=== PATIENT | female | born 1980 | race Caucasian/White ===

== ENCOUNTER 2018-11-23 12:22 | Inpatient (IN) | payer MEDICARE ==
--- NOTE | 2018-11-23 13:41 | C.PDOC ---
History Of Present Illness 38 year old female presents to ED with complaint of lower back pain at rest for the past 2 days. Patient also complains of experiencing urinary incontinence. Patient has a PMHx of bulging discs in the lower lumbar region, surgery to her lumbar region one month ago, slipped disc, left-sided sciatica, anemia, and weakness to the left lower extremity. Patient denies any urinary retention, bowel retention, bowel incontinence, saddle anesthesia, weakness in the bilateral lower extremities, fever, chills, nausea, vomiting, dysuria, abdominal pain, and fall Chief Complaint (Nursing): Back Pain History Per: Patient History/Exam Limitations: no limitations Onset/Duration Of Symptoms: Days (2) Current Symptoms Are (Timing): Still Present Quality Of Discomfort: "Pain" Previous Symptoms: Back Pain, Prior Surgery (lumbar surgery) Associated Symptoms: Incontinence. denies: New Weakness, New Numbness Exacerbating Factor(s): Nothing Past Medical History Reviewed: Historical Data, Nursing Documentation, Vital Signs Vital Signs: Last Vital Signs Temp 98.5 F 11/23/18 12:50 Pulse 95 H 11/23/18 12:50 Resp 18 11/23/18 12:50 BP 94/64 L 11/23/18 12:50 Pulse Ox 100 11/23/18 12:50 - Medical History PMH: Anemia, Back Problems, Seizures Denies: Chronic Kidney Disease Surgical History: Back Surgery (Herniated disc sx, laminectomy L4-5, "discectomy"), Cholecystectomy Family History: States: Unknown Family Hx - Social History Hx Tobacco Use: No Hx Alcohol Use: Yes (Rarely) Hx Substance Use: No - Immunization History Hx Tetanus Toxoid Vaccination: No Hx Influenza Vaccination: Yes (2015) Hx Pneumococcal Vaccination: No Review Of Systems Constitutional: Negative for: Fever, Chills, Weakness Gastrointestinal: Negative for: Nausea, Vomiting, Abdominal Pain Genitourinary: Positive for: Incontinence (urinary ). Negative for: Dysuria Musculoskeletal: Positive for: Back Pain Neurological: Negative for: Weakness, Numbness, Dizziness Physical Exam - Physical Exam Appears: Non-toxic, Other (uncomfortable) Skin: Normal Color, Warm, Dry Head: Atraumatic, Normacephalic Eye(s): bilateral: Normal Inspection, PERRL, EOMI Oral Mucosa: Moist Neck: Normal ROM, Supple Chest: Symmetrical, No Deformity Cardiovascular: Rhythm Regular, No Murmur Respiratory: No Accessory Muscle Use, No Rales, No Rhonchi, No Wheezing Gastrointestinal/Abdominal: Soft, No Tenderness Rectal: Rectal Tone (normal) Back: No CVA Tenderness, Vertebral Tenderness (lumbar region), Paraspinal Tenderness (lumbar region) Extremity: Other (DTR 3+ bilateral lower extremites, normal plantar flexon) Extremity: Bilateral: Atraumatic, Normal Color And Temperature, Normal ROM Pulses: Left Dorsalis Pedis: Normal, Right Dorsalis Pedis: Normal Neurological/Psych: Oriented x3, Normal Speech, Normal Cognition, Normal Motor (5/5), Normal Sensation ED Course And Treatment - Laboratory Results Result Diagrams: 11/23/18 14:08 11/23/18 14:08 O2 Sat by Pulse Oximetry: 100 (in RA) - Other Rad L-spine MRI X-Ray: Interpreted by Me, Viewed By Me Interpretation: Strickland MD. Patient NameTORDEL CLIFTON / [id number] Ward MD. Study [id number] 15:41:48Transcriber. Sex / AgeF / [id number] Ward MD. [facility] BellevilleApproval [id number] 17:00:45. My Comment. Study Comments. Report. This report is currently processing and HAS NOT BEEN OFFICIALLY SIGNED BY THE PHYSICIAN - ESTIMATED TIME OF APPROVAL IS 11/23/2018 17:05. Date of service: 11/23/2018. PROCEDURE: MR LUMBAR SPINE WITH AND WITHOUT CONTRAST. HISTORY: low back/urinary incontinence. COMPARISON: None available. TECHNIQUE: Multiecho multiplanar sequences were performed through the lumbar spine with and without the use of intravenous contrast. 9 mL Omniscan was injected intravenously. FINDINGS: There is normal alignment of the lumbar vertebral bodies. There is normal lumbar lordosis. There is no acute fracture or spondylolysis. Bone marrow signal is within normal limits. The conus medullaris terminates at a normal level and the nerve roots of cauda equina are normal. The paraspinous soft tissues are normal. Imaged portion of the retroperitoneum is within limits. T12-L1: No disc herniation, spinal canal stenosis or neural foraminal narrowing. L1-2: No disc herniation, spinal canal stenosis or neural foraminal narrowing. L2-3: No disc herniation, spinal canal stenosis or neural foraminal narrowing. L3-4: No disc herniation, spinal canal stenosis or neural foraminal narrowing. L4-5: Central annular tear and broad-based central and left posterolateral disc extrusion with approximately 10 mm cranial migration of extruded fragment which indents the thecal sac with mass effect on the traversing left S1 and left-sided traversing nerve roots and results in mild spinal canal stenosis. Mild bilateral facet arthropathy contribute to mild right and moderate left neural foraminal narrowing. L5-S1: Broad-based central disc protrusion indents the ventral thecal sac with mild spinal canal stenosis. No neural foraminal narrowing. OTHER FINDINGS: On post-contrast images there is no abnormal leptomeningeal or intramedullary enhancement. IMPRESSION: 1. At L4-5, central annular tear and broad-based central and left posterolateral disc extrusion with approximately 10 mm cranial migration of extruded disc fragment, mass effect on the traversing left S1 and left-sided traversing nerve roots and mild spinal canal stenosis. Mild right and moderate left neural foraminal narrowing. 2. At L5-S1 broad-based central disc protrusion and mild spinal canal stenosis. No neural foraminal narrowing. Medical Decision Making Medical Decision Making: Impression: 38 year old female with lumbar back pain for 2 days. Plan: Labs ordered with urine culture and UA Patient given Morphine IVP and Zofran IVP Lumbar Spine MRI ordered for patient Re-eval: Patient appears comfortable. Disposition Counseled Patient/Family Regarding: Studies Performed, Diagnosis - Disposition Disposition: HOSPITALIZED Disposition Time: 17:41 Condition: STABLE - Clinical Impression Clinical Impression: Herniation of left side of L4-L5 intervertebral disc, Anemia, UTI (urinary tract infection) - Scribe Statement The provider has reviewed the documentation as recorded by the Scribe (Isidra Resendez) All medical record entries made by the Scribe were at my direction and personally dictated by me. I have reviewed the chart and agree that the record accurately reflects my personal performance of the history, physical exam, medical decision making, and the department course for this patient. I have also personally directed, reviewed, and agree with the discharge instructions and disposition.
[2018-11-23 14:20] LABS: BASO # 0.1 K/uL (0.0-0.2); BASO % 1.2 % (0.0-2.0); EOS # 0.1 K/uL (0.0-0.7); EOS % 2.2 % (0.0-4.0); HEMOGLOBIN 8.6 g/dL (11.0-16.0); LYMPH # 1.6 K/uL (1.0-4.3); LYMPH % 30.8 % (20.0-40.0); MEAN CELL VOLUME 71.6 fL (81.0-99.0); MEAN CORPUSCULAR HEMOGLOBIN 21.9 pg (27.0-31.0); MEAN CORPUSCULAR HGB CONC 30.6 g/dL (33.0-37.0); MEAN PLATELET VOLUME 7.8 fL (7.2-11.7); MONO # 0.5 K/uL (0.0-0.8); MONO % 9.1 % (0.0-10.0); NEUT % 56.7 % (50.0-75.0); RBC 3.93 Mil/uL (3.80-5.20); RED CELL DISTRIBUTION WIDTH 17.5 % (11.5-14.5); WHITE BLOOD COUNT 5.3 K/uL (4.8-10.8)
[2018-11-23 14:32] LABS: INR 1.1
[2018-11-23 14:33] LABS: ALB/GLOB RATIO 1.4 (1.0-2.1); ALBUMIN 4.1 g/dL (3.5-5.0); ALT/SGPT 9 U/L (9-52); AST/SGOT 21 U/L (14-36); BLOOD UREA NITROGEN 13 mg/dL (7-17); CALCIUM 8.2 mg/dl (8.6-10.4); GFR NON-AFRICAN AMERICAN > 60
[2018-11-23 14:58] LABS: SQUAMOUS EPITHIAL 15 /hpf (0-5); URINE BACTERIA MANY (<OCC); URINE BILIRUBIN NEGATIVE (NEGATIVE); URINE BLOOD NEGATIVE (NEGATIVE); URINE CLARITY Hazy (Clear); URINE COLOR Amber (YELLOW); URINE GLUCOSE (UA) NORMAL (Normal); URINE LEUKOCYTE ESTERASE 2+ Leu/uL (Negative); URINE PROTEIN NEGATIVE (NEGATIVE)
[2018-11-23] MEDS ORDERED: Sodium Chloride 0.9% 1,000 ML IV ONE ×2 (15:01→17:37)
[2018-11-23] MEDS ORDERED: Sodium Chloride 0.9% 1,000 ML ONE ×3 (15:22→18:24)
[2018-11-23] MEDS ORDERED: Gadodiamide 287 MG/ML VIAL (15ML) IV ONE (16:12)
--- NOTE | 2018-11-23 17:04 | MRI ---
Date of service: 11/23/2018 PROCEDURE: MR LUMBAR SPINE WITH AND WITHOUT CONTRAST HISTORY: low back/urinary incontinence COMPARISON: None available. TECHNIQUE: Multiecho multiplanar sequences were performed through the lumbar spine with and without the use of intravenous contrast. 9 mL Omniscan was injected intravenously. FINDINGS: There is normal alignment of the lumbar vertebral bodies. There is normal lumbar lordosis. There is no acute fracture or spondylolysis. Bone marrow signal is within normal limits. The conus medullaris terminates at a normal level and the nerve roots of cauda equina are normal. The paraspinous soft tissues are normal. Imaged portion of the retroperitoneum is within limits. T12-L1: No disc herniation, spinal canal stenosis or neural foraminal narrowing. L1-2: No disc herniation, spinal canal stenosis or neural foraminal narrowing. L2-3: No disc herniation, spinal canal stenosis or neural foraminal narrowing. L3-4: No disc herniation, spinal canal stenosis or neural foraminal narrowing. L4-5: Central annular tear and broad-based central and left posterolateral disc extrusion with approximately 10 mm cranial migration of extruded fragment which indents the thecal sac with mass effect on the traversing left S1 and left-sided traversing nerve roots and results in mild spinal canal stenosis. Mild bilateral facet arthropathy contribute to mild right and moderate left neural foraminal narrowing. L5-S1: Broad-based central disc protrusion indents the ventral thecal sac with mild spinal canal stenosis. No neural foraminal narrowing. OTHER FINDINGS: On post-contrast images there is no abnormal leptomeningeal or intramedullary enhancement. IMPRESSION: 1. At L4-5, central annular tear and broad-based central and left posterolateral disc extrusion with approximately 10 mm cranial migration of extruded disc fragment, mass effect on the traversing left S1 and left-sided traversing nerve roots and mild spinal canal stenosis. Mild right and moderate left neural foraminal narrowing. 2. At L5-S1 broad-based central disc protrusion and mild spinal canal stenosis. No neural foraminal narrowing.
[2018-11-23] MEDS ORDERED: Tmp-Smz 800 mg-160 mg DS Tab PO STA (17:17)
[2018-11-23] MEDS ORDERED: Morphine 4 MG/ML VIAL IV ONE (17:36)
[2018-11-23] MEDS ORDERED: Tmp-Smz 800 mg-160 mg DS Tab ONE (17:38)
[2018-11-23] MEDS ORDERED: Multivitamin (MVI) 10 ML, Thiamine 100 MG, Folic Acid 1 MG in Sodium Chloride 0.9% 1,00... IV ONE (17:49)
[2018-11-23] MEDS ORDERED: Sodium Chloride 0.9% 500 ML IV ONE (18:21)
[2018-11-23] MEDS ORDERED: Morphine 4 MG/ML VIAL IVP STA (18:32)
--- NOTE | 2018-11-23 18:40 | CP.PCM.HP ---
<AngeFreda Sam - Last Filed: 11/23/18 19:22> History of Present Illness - History of Present Illness History of Present Illness: CC: low back pain HPI: Patient is a 38 year old female with PMHx of anemia, gastric bypass surgery (2013), L4-L5 laminectomy due to herniated discs (2014) who presents today for 1 month of worsening low back pain. Patient had no trauma or falls. 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 Patient says the pain today was a knife like pain in her low back which she rated 15/10 so she came to the hospital. Additionally patient has had 3-4 episodes of a small amount of urinary incontinence in the past 2 days. Patient denies dysuria, urinary frequency, or hematuria. Patient is able to walk, but says the back pain radiates down the left. Patient denies any numbness or tingling in the lower extremities. Patient denies any saddle anesthesia or fecal incontinence. Patient had a normal bowel movement yesterday. Patient does not take any medication for the pain. Patient said she took Tylenol PM a few weeks ago, but did not like the way it made her feel. Patient has no headache, chest pain, shortness of breath, abdominal pain, nausea, vomiting, constipation, or diarrhea. All: NKDA PMHx: anemia 2/2 gastric bypass surgery, herniated discs Psurg: Gastric bypass 2013 at [place] (has not had any follow up, takes no supplements/vitamins), L4/L5 Laminectomy 2014 2/2 herniated discs at [facility] with Dr. Lal, Cholecystectomy 2012, Tubal ligation 2009, 4 csections: 1993, 2000, 2001, 2007 Famhx: denies Meds: denies Social: denies tobacco, drugs, admits to drinking about 1 drink per year for New Year's Mindy Present on Admission - Present on Admission Any Indicators Present on Admission: No History of DVT/PE: No History of Uncontrolled Diabetes: No Urinary Catheter: No Decubitus Ulcer Present: No Review of Systems - Constitutional Constitutional: absent: Chills, Fever - EENT Ears: absent: Dizziness - Cardiovascular Cardiovascular: absent: Chest Pain, Dyspnea - Respiratory Respiratory: absent: Cough, Dyspnea - Gastrointestinal Gastrointestinal: absent: Abdominal Pain, Constipation, Diarrhea, Nausea, Vomiti ng - Genitourinary Genitourinary: Urinary Incontinence. absent: Dysuria, Hematuria, Urinary Frequency, Urinary Hesitance - Musculoskeletal Musculoskeletal: absent: Numbness, Tingling Additional comments: left leg decreased ROM 2/2 pain lumbar pain radiating into left leg - Neurological Neurological: absent: Tingling, Weakness Past Patient History - Past Social History Smoking Status: Never Smoked - CARDIAC Hx Cardiac Disorders: No - PULMONARY Hx Respiratory Disorders: No - NEUROLOGICAL Hx Seizures: Yes - HEENT Hx HEENT Problems: No - RENAL Hx Chronic Kidney Disease: No - ENDOCRINE/METABOLIC Hx Endocrine Disorders: No - HEMATOLOGICAL/ONCOLOGICAL Hx Anemia: Yes - MUSCULOSKELETAL/RHEUMATOLOGICAL Hx Musculoskeletal Disorders: Yes Hx Herniated Disk: Yes - PSYCHIATRIC Hx Substance Use: No - SURGICAL HISTORY Hx Cholecystectomy: Yes - ANESTHESIA Hx Anesthesia: Yes Hx Anesthesia Reactions: No Meds Allergies/Adverse Reactions: Allergies Allergy/AdvReac Type Severity Reaction Status Date / Time No Known Allergies Allergy Verified 11/23/18 12:54 Physical Exam - Constitutional Appears: Non-toxic, In Acute Distress - Head Exam Head Exam: ATRAUMATIC, NORMAL INSPECTION, NORMOCEPHALIC - Eye Exam Eye Exam: EOMI, Normal appearance - ENT Exam ENT Exam: Mucous Membranes Moist - Respiratory Exam Respiratory Exam: Clear to Auscultation Bilateral, NORMAL BREATHING PATTERN - Cardiovascular Exam Cardiovascular Exam: REGULAR RHYTHM, RRR, +S1, +S2 - GI/Abdominal Exam GI & Abdominal Exam: Normal Bowel Sounds, Soft. absent: Tenderness - Extremities Exam Extremities exam: Positive for: normal inspection. Negative for: pedal edema, tenderness Additional comments: decreased L leg ROM 2/2 pain - Neurological Exam Neurological exam: Alert, CN II-XII Intact, Oriented x3 Additional comments: r leg reflexes 3+, l leg reflexes 2+ normal sensation b/l LE no saddle anesthesia - Psychiatric Exam Psychiatric exam: Normal Affect, Normal Mood - Skin Skin Exam: Intact, Normal Color, Warm Results - Vital Signs Recent Vital Signs: Last Vital Signs Temp 98.4 F 11/23/18 16:56 Pulse 60 11/23/18 16:56 Resp 18 11/23/18 16:56 BP 93/63 L 11/23/18 16:56 Pulse Ox 100 11/23/18 17:47 - Labs Result Diagrams: 11/23/18 14:08 11/23/18 14:08 Labs: Laboratory Results - last 24 hr 11/23/18 11/23/18 11/23/18 14:08 14:08 14:08 WBC 5.3 RBC 3.93 Hgb 8.6 L Hct 28.1 L MCV 71.6 L MCH 21.9 L MCHC 30.6 L RDW 17.5 H Plt Count 375 D MPV 7.8 Neut % (Auto) 56.7 Lymph % (Auto) 30.8 [place] % (Auto) 9.1 Eos % (Auto) 2.2 Baso % (Auto) 1.2 Neut # (Auto) 3.0 Lymph # (Auto) 1.6 [place] # (Auto) 0.5 Eos # (Auto) 0.1 Baso # (Auto) 0.1 PT 12.0 INR 1.1 APTT 31 Sodium Potassium Chloride Carbon Dioxide Anion Gap BUN Creatinine Est GFR ( Amer) Est GFR (Non-Af Amer) Random Glucose Calcium Total Bilirubin AST ALT Alkaline Phosphatase Total Protein Albumin Globulin Albumin/Globulin Ratio Urine Color Mary Urine Clarity Hazy Urine pH 5.0 Ur Specific [place] 1.021 Urine Protein Negative Urine Glucose (UA) Normal Urine Ketones Negative Urine Blood Negative Urine Nitrate Negative Urine Bilirubin Negative Urine Urobilinogen 4.0 H Ur Leukocyte Esterase 2+ H Urine WBC (Auto) 12 H Urine RBC (Auto) 4 H Ur Squamous Epith Cells 15 H Urine Bacteria Many H 11/23/18 14:08 WBC RBC Hgb Hct MCV MCH MCHC RDW Plt Count MPV Neut % (Auto) Lymph % (Auto) [place] % (Auto) Eos % (Auto) Baso % (Auto) Neut # (Auto) Lymph # (Auto) [place] # (Auto) Eos # (Auto) Baso # (Auto) PT INR APTT Sodium 137 Potassium 3.6 Chloride 107 Carbon Dioxide 24 Anion Gap 10 BUN 13 Creatinine 0.7 Est GFR ( Amer) > 60 Est GFR (Non-Af Amer) > 60 Random Glucose 88 D Calcium 8.2 L Total Bilirubin 0.1 L AST 21 ALT 9 D Alkaline Phosphatase 128 H Total Protein 7.0 Albumin 4.1 Globulin 2.9 Albumin/Globulin Ratio 1.4 Urine Color Urine Clarity Urine pH Ur Specific [place] Urine Protein Urine Glucose (UA) Urine Ketones Urine Blood Urine Nitrate Urine Bilirubin Urine Urobilinogen Ur Leukocyte Esterase Urine WBC (Auto) Urine RBC (Auto) Ur Squamous Epith Cells Urine Bacteria Assessment & Plan - Assessment and Plan (Free Text) Assessment: L4-L5 Central Annular Tear with Disc Extrusion MRI: 1. At L4-L5, central annular tear and broad-based central and left posterolateral disc extrusion with approximately 10mm cranial migration of extruded disc fragment, mass effect on the traversing left S1 and left sided traversing nerve roots and mild spinal canal stenosis. Mild right and moderate left neural foraminal narrowing 2. At L5-S1 broad- based central disc protrusion and mild spinal canal stenosis. No neural foraminal narrowing. Dr. Manzano consulted, planning for surgery in AM NPO type and cross f/u ekg + cxray INR WNL UTI Rocephin 1g q12h Florastor 250mg po BID f/u urine culture Anemia (2/2 gastric bypass) Ferritin, % Iron saturation, Iron, HIV 1&2, Vitamin D, Retic count Prophylaxis SCDs Pepcid 20mg ivp daily Discussed and saw patient with Dr. Sanders <Stacey Sanders V - Last Filed: 11/23/18 23:58> Results - Vital Signs Recent Vital Signs: Last Vital Signs Temp 98.1 F 11/23/18 19:19 Pulse 70 11/23/18 19:19 Resp 18 11/23/18 19:19 BP 101/61 11/23/18 19:19 Pulse Ox 100 11/23/18 19:19 - Labs Result Diagrams: 11/23/18 14:08 11/23/18 14:08 Labs: Laboratory Results - last 24 hr 11/23/18 11/23/18 11/23/18 14:08 14:08 14:08 WBC 5.3 RBC 3.93 Hgb 8.6 L Hct 28.1 L MCV 71.6 L MCH 21.9 L MCHC 30.6 L RDW 17.5 H Plt Count 375 D MPV 7.8 Neut % (Auto) 56.7 Lymph % (Auto) 30.8 [place] % (Auto) 9.1 Eos % (Auto) 2.2 Baso % (Auto) 1.2 Neut # (Auto) 3.0 Lymph # (Auto) 1.6 [place] # (Auto) 0.5 Eos # (Auto) 0.1 Baso # (Auto) 0.1 PT 12.0 INR 1.1 APTT 31 Sodium Potassium Chloride Carbon Dioxide Anion Gap BUN Creatinine Est GFR ( Amer) Est GFR (Non-Af Amer) Random Glucose Calcium Iron % Saturation Ferritin Total Bilirubin AST ALT Alkaline Phosphatase Total Protein Albumin Globulin Albumin/Globulin Ratio Urine Color Mary Urine Clarity Hazy Urine pH 5.0 Ur Specific [place] 1.021 Urine Protein Negative Urine Glucose (UA) Normal Urine Ketones Negative Urine Blood Negative Urine Nitrate Negative Urine Bilirubin Negative Urine Urobilinogen 4.0 H Ur Leukocyte Esterase 2+ H Urine WBC (Auto) 12 H Urine RBC (Auto) 4 H Ur Squamous Epith Cells 15 H Urine Bacteria Many H HIV 1&2 Antibody Screen Blood Type Antibody Screen 11/23/18 11/23/18 11/23/18 14:08 18:03 18:50 WBC RBC Hgb Hct MCV MCH MCHC RDW Plt Count MPV Neut % (Auto) Lymph % (Auto) [place] % (Auto) Eos % (Auto) Baso % (Auto) Neut # (Auto) Lymph # (Auto) [place] # (Auto) Eos # (Auto) Baso # (Auto) PT INR APTT Sodium 137 Potassium 3.6 Chloride 107 Carbon Dioxide 24 Anion Gap 10 BUN 13 Creatinine 0.7 Est GFR ( Amer) > 60 Est GFR (Non-Af Amer) > 60 Random Glucose 88 D Calcium 8.2 L Iron 52 % Saturation 22 Ferritin 4.7 Total Bilirubin 0.1 L AST 21 ALT 9 D Alkaline Phosphatase 128 H Total Protein 7.0 Albumin 4.1 Globulin 2.9 Albumin/Globulin Ratio 1.4 Urine Color Urine Clarity Urine pH Ur Specific [place] Urine Protein Urine Glucose (UA) Urine Ketones Urine Blood Urine Nitrate Urine Bilirubin Urine Urobilinogen Ur Leukocyte Esterase Urine WBC (Auto) Urine RBC (Auto) Ur Squamous Epith Cells Urine Bacteria HIV 1&2 Antibody Screen Blood Type Antibody Screen 11/23/18 11/23/18 18:50 20:21 WBC RBC Hgb Hct MCV MCH MCHC RDW Plt Count MPV Neut % (Auto) Lymph % (Auto) [place] % (Auto) Eos % (Auto) Baso % (Auto) Neut # (Auto) Lymph # (Auto) [place] # (Auto) Eos # (Auto) Baso # (Auto) PT INR APTT Sodium Potassium Chloride Carbon Dioxide Anion Gap BUN Creatinine Est GFR ( Amer) Est GFR (Non-Af Amer) Random Glucose Calcium Iron % Saturation Ferritin Total Bilirubin AST ALT Alkaline Phosphatase Total Protein Albumin Globulin Albumin/Globulin Ratio Urine Color Urine Clarity Urine pH Ur Specific [place] Urine Protein Urine Glucose (UA) Urine Ketones Urine Blood Urine Nitrate Urine Bilirubin Urine Urobilinogen Ur Leukocyte Esterase Urine WBC (Auto) Urine RBC (Auto) Ur Squamous Epith Cells Urine Bacteria HIV 1&2 Antibody Screen Negative Blood Type O POSITIVE Antibody Screen Negative Assessment & Plan (1) Herniation of left side of L4-L5 intervertebral disc Status: Acute (2) History of gastric bypass Status: Chronic (3) Anemia of chronic disease Status: Chronic (4) Previous back surgery Status: Acute (5) Urinary incontinence Status: Acute (6) UTI (urinary tract infection) Status: Suspected (7) Prophylactic measure Status: Acute Attending/Attestation - Attestation I have personally seen and examined this patient.: Yes I have fully participated in the care of the patient.: Yes I have reviewed all pertinent clinical information: Yes Notes (Text): Patient seen, examined, case discussed with medical technologist microbiology. Patient seen in the emergency room noted for worsening low back pain over patient's left lower back with associated strength decrease. Patient noted urinary incontinence about 2 days prior denies dysuria denies hematuria which was new. Patient came in today after worsening back pain which prevented her from completing her job. 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 Patient has previously seen a chiropractor for her back pain. Patient has a prior history history of a laminectomy performed at [place] spoke with Dr. lal. Patient denies any recent trauma in terms of car accidents or falls to the lower back. Patient has a history of gastric bypass surgery has lost about 140 pounds. She is not taking any outpatient supplements including vitamins, calcium, iron supplementation. Patient is strongly advised given that she has cardiac gastric bypass surgery that she would need life long vitamin supplementation and her iron supplementation given the nature of the surgery which she is aware. ED doctor has spoken with neurosurgery who is scheduled patient for OR tomorrow we will see be seen by neurosurgeons partner Dr. Franco will discuss risks and benefits of procedure prior to the OR potentially 11 AM tomorrow. 1. Lumbago Prior history of laminectomy L4-L5 Lumbar disc herniation with associated sciatica Assessment/plan Neurosurgery on board Preoperative/intraoperative/postoperative management per neurosurgery Anticoagulation held secondary to preop for OR Lumbar MRI was completed in the ED noted for annual tear and a disc extrusion specifics noted in report Neurochecks every 4 Activity as fall risk precaution Resident has spoken with neurosurgery does not recommend IV steroids at this time Chest x-ray was completed no active disease noted on official report Pending EKG Noted hyperreflexia over the right lower extremity and strength is noticeably decreased over the left lower extremity patient noted limited range of motion secondary to pain over the left lower extremity No saddle anesthesia 2. History of gastric bypass surgery Assessment/plan Order for banana bag which includes folic acid, vitamin B12 and multivitamin Vitamin D level Patient will likely need vitamin supplementation notably BARBI D which are lipophilic post OR Patient strongly counseled at bedside 3. Urinary incontinence Assessment/plan Urine culture pending Empiric antibiotic treatment started Baseline blood cultures ordered 4. Anemia Likely secondary to chronic disease secondary to gastric bypass surgery history Type and cross 2 units possible for Reticulocyte count Ferritin which is noted to be low we will start IV Ferrlecit Iron studies 5. Prophylactic measure N.p.o. for neurosurgical intervention Chemical contraindication for preop for procedure tomorrow Empiric antibiotic for abnormal UA Fall precautions IV fluids Patient is noted again that she is recommended for neurosurgical procedure in light of MRI results as well as clinical status that she is high risk she is had prior neurosurgical intervention in regards to her spine. Surgery and anesthesia to discuss risks and benefits of procedure prior to the OR. Preop/intraoperative/postoperative management per surgery.
[2018-11-23 19:53] LABS: IRON 52 ug/dL (37-170)
[2018-11-23] MEDS: Saccharomyces Boulardi 250 mg Cap PO SCH (19:56)
[2018-11-23 20:02] LABS: % IRON SATURATION 22 (20-55)
[2018-11-24] MEDS: Morphine 4 MG/ML VIAL IVP PRN ×2 (00:08→04:24)
[2018-11-24] MEDS: Ferric Sodium Gluconat Complex 62.5 mg/5 ml Vial IVPB SCH ×2 (06:25→09:33)
--- NOTE | 2018-11-24 07:37 | CP.PCM.PN ---
<Venkata Cheung - Last Filed: 11/24/18 14:50> Subjective - Date & Time of Evaluation Date of Evaluation: 11/24/18 Time of Evaluation: 07:34 - Subjective Subjective: HOSPITALIST SERVICE s/e at bedside, reports persistent back pain, however understands she needs to wait until anesthesia @ 10am. Pt reports resolution of urinary symptoms, denies chest pain shortness of breath, fc nv Objective - Vital Signs/Intake and Output Vital Signs (last 24 hours): Temp Pulse Resp BP Pulse Ox 98 F 73 20 98/57 L 99 11/23/18 23:22 11/23/18 23:22 11/23/18 23:22 11/23/18 23:22 11/23/18 23:22 Intake and Output: 11/24/18 11/24/18 06:59 18:59 Intake Total 500 Balance 500 - Medications Medications: Current Medications Famotidine (Pepcid) 20 mg IVP DAILY [facility] Ferric Sodium Gluconate Complex (Ferrlecit) 125 mg IVPB DAILY [facility] Stop: 12/02/18 07:01 Last Admin: 11/24/18 06:25 Dose: 125 mg Ceftriaxone Sodium 1 gm/ (Sodium Chloride) 100 mls @ 100 mls/hr IVPB Q12H [facility]; Protocol Last Admin: 11/24/18 05:03 Dose: 100 mls/hr Morphine Sulfate (Morphine) 2 mg IVP Q4H PRN PRN Reason: Pain, moderate (4-7) Morphine Sulfate (Morphine) 4 mg IVP Q4 PRN PRN Reason: Pain, severe (8-10) Last Admin: 11/24/18 04:24 Dose: 4 mg Saccharomyces Boulardii (Florastor) 250 mg PO BID [facility] Last Admin: 11/23/18 19:56 Dose: 250 mg - Labs Labs: 11/23/18 14:08 11/23/18 14:08 PT 12.0 SECONDS (9.7-12.2) 11/23/18 14:08 INR 1.1 11/23/18 14:08 APTT 31 SECONDS (21-34) 11/23/18 14:08 - Additional Findings Additional findings: - Constitutional Appears: Non-toxic, In Acute Distress - Head Exam Head Exam: ATRAUMATIC, NORMAL INSPECTION, NORMOCEPHALIC - Eye Exam Eye Exam: EOMI, Normal appearance - ENT Exam ENT Exam: Mucous Membranes Moist - Respiratory Exam Respiratory Exam: Clear to Auscultation Bilateral, NORMAL BREATHING PATTERN - Cardiovascular Exam Cardiovascular Exam: REGULAR RHYTHM, RRR, +S1, +S2 - GI/Abdominal Exam GI & Abdominal Exam: Normal Bowel Sounds, Soft. absent: Tenderness - Extremities Exam Extremities exam: Positive for: normal inspection. Negative for: pedal edema, tenderness Additional comments: decreased L leg ROM 2/2 pain - Neurological Exam Neurological exam: Alert, CN II-XII Intact, Oriented x3 Additional comments: r leg reflexes 3+, l leg reflexes 2+ normal sensation b/l LE no saddle anesthesia - Psychiatric Exam Psychiatric exam: Normal Affect, Normal Mood - Skin Skin Exam: Intact, Normal Color, Warm Assessment and Plan - Assessment and Plan (Free Text) Assessment: 38f Admitted for lumbar spine radicular symptoms with urinary incontinence, for neurosurgical intervention today @ 11am w/ Dr Franco Plan: L4-L5 Central Annular Tear with Disc Extrusion MRI: 1. At L4-L5, central annular tear and broad-based central and left posterolateral disc extrusion with approximately 10mm cranial migration of extruded disc fragment, mass effect on the traversing left S1 and left sided traversing nerve roots and mild spinal canal stenosis. Mild right and moderate left neural foraminal narrowing 2. At L5-S1 broad- based central disc protrusion and mild spinal canal stenosis. No neural foraminal narrowing. Dr Franco NeuroSx done today: minimally invasive, toradol and dilaudid PRN for pain, possible d/c tmrw pending PT eval ekg NSR cxray no active disease INR WNL UTI Rocephin 1g q12h Florastor 250mg po BID gram neg rods in urine culture Anemia (2/2 gastric bypass) Ferritin, % Iron saturation, Iron, HIV 1&2, Vitamin D, Retic count wnl Prophylaxis SCDs Pepcid 20mg ivp daily Discussed and saw patient with Dr. Langford <Donal Langford - Last Filed: 11/24/18 16:49> Objective - Vital Signs/Intake and Output Vital Signs (last 24 hours): Temp Pulse Resp BP Pulse Ox 98.2 F 77 18 83/53 L 98 11/24/18 14:30 11/24/18 14:57 11/24/18 14:57 11/24/18 14:57 11/24/18 14:57 Intake and Output: 11/24/18 11/24/18 06:59 18:59 Intake Total 500 3800 Output Total 150 Balance 500 3650 - Medications Medications: Current Medications Famotidine (Pepcid) 20 mg IVP DAILY [facility] Last Admin: 11/24/18 10:46 Dose: Not Given Ferric Sodium Gluconate Complex (Ferrlecit) 125 mg IVPB DAILY [facility] Stop: 12/02/18 07:01 Last Admin: 11/24/18 09:33 Dose: Not Given Hydromorphone HCl (Dilaudid) 0.5 mg IVP Q4H PRN PRN Reason: Pain, severe (8-10) Ceftriaxone Sodium 1 gm/ (Sodium Chloride) 100 mls @ 100 mls/hr IVPB Q12H [facility]; Protocol Last Admin: 11/24/18 05:03 Dose: 100 mls/hr Lactated Ringer's (Lactated Ringer's) 1,000 mls @ 100 mls/hr IV .Q10H [facility] Potassium Chloride/Dextrose/Sod Cl (Potassium Chl 20 Meq In D5-1/2ns) 1,000 mls @ 125 mls/hr IV .Q8H [facility] Ketorolac Tromethamine (Toradol) 30 mg IVP Q6 [facility] Stop: 11/29/18 18:01 Morphine Sulfate (Morphine) 4 mg IVP Q4 PRN PRN Reason: Pain, severe (8-10) Last Admin: 11/24/18 04:24 Dose: 4 mg Morphine Sulfate (Morphine) 1 mg IVP Q4H PRN PRN Reason: Pain, moderate (4-7) Oxycodone/Acetaminophen (Percocet 5/325 Mg Tab) 1 tab PO Q4H PRN PRN Reason: Pain, moderate (4-7) Stop: 11/27/18 12:35 Last Admin: 11/24/18 16:45 Dose: 1 tab Saccharomyces Boulardii (Florastor) 250 mg PO BID [facility] Last Admin: 11/24/18 10:46 Dose: Not Given - Labs Labs: 11/24/18 08:56 11/24/18 08:56 PT 12.0 SECONDS (9.7-12.2) 11/23/18 14:08 INR 1.1 11/23/18 14:08 APTT 31 SECONDS (21-34) 11/23/18 14:08 Attending/Attestation - Attestation I have personally seen and examined this patient.: Yes I have fully participated in the care of the patient.: Yes I have reviewed all pertinent clinical information, including history, physical exam and plan: Yes
[2018-11-24] MEDS ORDERED: Lactated Ringer's 500 ML IV ONE (08:03)
--- NOTE | 2018-11-24 09:00 | RAD ---
Date of service: 11/23/2018 HISTORY: preadmission COMPARISON: Only a lateral view 06/26/2012 is available for comparison. A frontal view of the abdomen that same date noted. CT abdomen and pelvis report noted 07/17/2015 FINDINGS: LUNGS: No active pulmonary disease. PLEURA: No significant pleural effusion identified, no pneumothorax apparent. CARDIOVASCULAR: No aortic atherosclerotic calcification present. Normal cardiac size. No pulmonary vascular congestion. OSSEOUS STRUCTURES: No significant abnormalities. VISUALIZED UPPER ABDOMEN: Hyperdensities over right upper quadrant probably cholecystectomy clips OTHER FINDINGS: None. IMPRESSION: No acute cardiopulmonary pathology noted
[2018-11-24] MEDS ORDERED: Absorbable Gelatin Sponge Size 100 ONE (09:05)
[2018-11-24] MEDS ORDERED: ceFAZolin 1 gm in NS 0 GM/0 ML BAG IVPB ONE (09:05)
[2018-11-24 09:10] LABS: BASO % 0.6 % (0.0-2.0); EOS # 0.1 K/uL (0.0-0.7); EOS % 2.5 % (0.0-4.0); HEMOGLOBIN 8.2 g/dL (11.0-16.0); LYMPH # 2.5 K/uL (1.0-4.3); LYMPH % 46.6 % (20.0-40.0); MEAN CELL VOLUME 72.4 fL (81.0-99.0); MEAN CORPUSCULAR HEMOGLOBIN 22.2 pg (27.0-31.0); MEAN CORPUSCULAR HGB CONC 30.6 g/dL (33.0-37.0); MEAN PLATELET VOLUME 7.9 fL (7.2-11.7); MONO # 0.5 K/uL (0.0-0.8); MONO % 9.1 % (0.0-10.0); NEUT # 2.2 K/uL (1.8-7.0); NEUT % 41.2 % (50.0-75.0); RBC 3.68 Mil/uL (3.80-5.20); RED CELL DISTRIBUTION WIDTH 17.7 % (11.5-14.5); WHITE BLOOD COUNT 5.3 K/uL (4.8-10.8)
[2018-11-24] MEDS ORDERED: Thrombin Topical 20,000 Intl Units Spray Kit TOP ONE (09:18)
[2018-11-24 09:22] LABS: ALB/GLOB RATIO 1.3 (1.0-2.1); ALBUMIN 3.8 g/dL (3.5-5.0); ALT/SGPT 19 U/L (9-52); AST/SGOT 23 U/L (14-36); BLOOD UREA NITROGEN 6 mg/dL (7-17); GFR NON-AFRICAN AMERICAN > 60
[2018-11-24] MEDS ORDERED: Bacitracin 50,000 UNIT in Sodium Chloride 0.9% Irrig 1,000 ML IR SCH (09:30)
[2018-11-24] MEDS ORDERED: Bupivacaine HCl 0.5% PF (10 ml) Inj ONE (10:01)
[2018-11-24] MEDS ORDERED: Bupivacaine Liposomal Inj 20 ml INFIL ONE (10:01)
[2018-11-24] MEDS ORDERED: Lidocaine/Epinephrine 1% 1:100000 10 ML IJ ONE (10:02)
[2018-11-24] MEDS ORDERED: Propofol 10 mg/ml Inj (20 ML) ONE (10:15)
[2018-11-24] MEDS ORDERED: Midazolam 2 MG/2 ML VIAL ONE (10:15)
[2018-11-24] MEDS ORDERED: Propofol 10 mg/ml 2,000 MG/200 ML VIAL ONE (10:19)
[2018-11-24] MEDS ORDERED: Remifentanil 1 mg/3 ml Vial IV ONE (10:20)
[2018-11-24] MEDS ORDERED: Sodium Chloride 0.9% 0 ML IV ONE (10:23)
[2018-11-24] MEDS: Saccharomyces Boulardi 250 mg Cap PO SCH ×2 (10:46→17:11)
[2018-11-24] MEDS ORDERED: Atropine 0.4 mg/ml Inj (1 mL) ONE (11:36)
--- NOTE | 2018-11-24 11:48 | CP.PCM.CON ---
<Kellen Beasley P - Last Filed: 11/24/18 20:17> History of Present Illness - History of Present Illness History of Present Illness: Consult note for Dr. Lynch. Patient is a 38 year old female PMHx of anemia, gastric bypass surgery (2013), L4-L5 laminectomy due to herniated discs (2014) presented to the ED for severe left lower back pain for over a month that had worsened in the last 2 days. Pain is described as a sharp stabbing pain that radiates down the L leg. 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 Treatment at home with Advil PM provided some improvement, enough to sleep at night. Patient states she has had this pain once before prior to her laminectomy and had resolved with surgery. Patient also complains of dysuria and a few episodes of incontinence of a small amount of urine in the last few days (urine cx positive for gram neg karen). Patient denies bowel incontinence, saddle anesthesia, trauma, numbness and tingling. MRI of the lumbar spine showed annular tear at L4-L5 and disc extrusion with mass effect on traversing left S1 and left sided traversing nerve roots as well as mild spinal canal stenosis and neural foraminal narrowing. L5- S1 disc protrusion and mild spinal canal stenosis. Patient went for L4-L5 laminectomy today with neurosurgery, Dr. Franco. Today, patient reports continued severe back pain (>10/10) that prevents her from moving despite receiving pain medication. She also reports a "hot/burning" pain that radiates down her left leg. PMHx: anemia 2/2 gastric bypass surgery, herniated discs Psurg: L4-L5 Laminectomy 2014 2/2 herniated discs at [facility] with Dr. Lal, Gastric bypass 2014 at [place], Cholecystectomy 2013, Tubal ligation 2009, 4 csections: 1993, 2001, 2002, 2008 Famhx: denies Meds: denies Allergies: NKDA Social: denies tobacco, alcohol and illicit drugs Review of Systems - Review of Systems All systems: reviewed and no additional remarkable complaints except (as per HPI) Past Patient History - Past Medical History & Family History Past Medical History?: Yes - Past Social History Smoking Status: Never Smoked - CARDIAC Hx Cardiac Disorders: No - PULMONARY Hx Respiratory Disorders: No - NEUROLOGICAL Hx Seizures: Yes - HEENT Hx HEENT Problems: No - RENAL Hx Chronic Kidney Disease: No - ENDOCRINE/METABOLIC Hx Endocrine Disorders: No - HEMATOLOGICAL/ONCOLOGICAL Hx Anemia: Yes - MUSCULOSKELETAL/RHEUMATOLOGICAL Hx Musculoskeletal Disorders: Yes Hx Herniated Disk: Yes - PSYCHIATRIC Hx Substance Use: No - SURGICAL HISTORY Hx Cholecystectomy: Yes - ANESTHESIA Hx Anesthesia: Yes Hx Anesthesia Reactions: No Meds Allergies/Adverse Reactions: Allergies Allergy/AdvReac Type Severity Reaction Status Date / Time No Known Allergies Allergy Verified 11/23/18 12:54 - Medications Medications: Current Medications Famotidine (Pepcid) 20 mg IVP DAILY [facility] Ferric Sodium Gluconate Complex (Ferrlecit) 125 mg IVPB DAILY [facility] Stop: 12/02/18 07:01 Last Admin: 11/24/18 09:33 Dose: Not Given Ceftriaxone Sodium 1 gm/ (Sodium Chloride) 100 mls @ 100 mls/hr IVPB Q12H [facility]; Protocol Last Admin: 11/24/18 05:03 Dose: 100 mls/hr Morphine Sulfate (Morphine) 4 mg IVP Q4 PRN PRN Reason: Pain, severe (8-10) Last Admin: 11/24/18 04:24 Dose: 4 mg Morphine Sulfate (Morphine) 1 mg IVP Q4H PRN PRN Reason: Pain, moderate (4-7) Saccharomyces Boulardii (Florastor) 250 mg PO BID [facility] Last Admin: 11/24/18 10:46 Dose: Not Given Physical Exam - Additional Findings Additional findings: - Constitutional Appears: Non-toxic, Other (uncomfortable in pain) - Head Exam Head Exam: ATRAUMATIC, NORMOCEPHALIC - Eye Exam Eye Exam: EOMI, Normal appearance, PERRL - ENT Exam ENT Exam: Mucous Membranes Moist - Neck Exam Neck exam: Positive for: Full Rom, Normal Inspection - Respiratory Exam Respiratory Exam: Clear to Auscultation Bilateral. absent: Rales, Rhonchi, Wheezes - Cardiovascular Exam Cardiovascular Exam: REGULAR RHYTHM, +S1, +S2 - GI/Abdominal Exam GI & Abdominal Exam: Normal Bowel Sounds, Soft. absent: Firm, Guarding, Tenderness - Extremities Exam Extremities exam: Positive for: normal inspection. Negative for: tenderness Additional comments: ROM lower extremities intact, but painful - Back Exam Additional comments: exquisite tenderness to palpation of midline thoracic and lumbar spine. - Neurological Exam Neurological exam: Alert, CN II-XII Intact, Oriented x3 Additional comments: Muscle strength 5/5 all extremities, sensation intact, Patellar and achilles DTR 2+, babinski downgoing. Results - Vital Signs Recent Vital Signs: Last Vital Signs Temp 98.3 F 11/24/18 09:52 Pulse 78 11/24/18 09:52 Resp 18 11/24/18 09:52 BP 105/64 11/24/18 09:52 Pulse Ox 100 11/24/18 09:52 - Labs Result Diagrams: 11/24/18 08:56 11/24/18 08:56 Labs: Laboratory Results - last 24 hr 11/23/18 11/23/18 11/23/18 14:08 14:08 14:08 WBC 5.3 RBC 3.93 Hgb 8.6 L Hct 28.1 L MCV 71.6 L MCH 21.9 L MCHC 30.6 L RDW 17.5 H Plt Count 375 D MPV 7.8 Neut % (Auto) 56.7 Lymph % (Auto) 30.8 [place] % (Auto) 9.1 Eos % (Auto) 2.2 Baso % (Auto) 1.2 Neut # (Auto) 3.0 Lymph # (Auto) 1.6 [place] # (Auto) 0.5 Eos # (Auto) 0.1 Baso # (Auto) 0.1 Retic Count PT 12.0 INR 1.1 APTT 31 Sodium Potassium Chloride Carbon Dioxide Anion Gap BUN Creatinine Est GFR ( Amer) Est GFR (Non-Af Amer) POC Glucose (mg/dL) Random Glucose Calcium Phosphorus Magnesium Iron % Saturation Ferritin Total Bilirubin AST ALT Alkaline Phosphatase Total Protein Albumin Globulin Albumin/Globulin Ratio 25-OH Vitamin D Total Urine Color Mary Urine Clarity Hazy Urine pH 5.0 Ur Specific [place] 1.021 Urine Protein Negative Urine Glucose (UA) Normal Urine Ketones Negative Urine Blood Negative Urine Nitrate Negative Urine Bilirubin Negative Urine Urobilinogen 4.0 H Ur Leukocyte Esterase 2+ H Urine WBC (Auto) 12 H Urine RBC (Auto) 4 H Ur Squamous Epith Cells 15 H Urine Bacteria Many H Urine HCG, Qual HIV 1&2 Antibody Screen Blood Type Antibody Screen 11/23/18 11/23/18 11/23/18 14:08 18:03 18:50 WBC RBC Hgb Hct MCV MCH MCHC RDW Plt Count MPV Neut % (Auto) Lymph % (Auto) [place] % (Auto) Eos % (Auto) Baso % (Auto) Neut # (Auto) Lymph # (Auto) [place] # (Auto) Eos # (Auto) Baso # (Auto) Retic Count PT INR APTT Sodium 137 Potassium 3.6 Chloride 107 Carbon Dioxide 24 Anion Gap 10 BUN 13 Creatinine 0.7 Est GFR ( Amer) > 60 Est GFR (Non-Af Amer) > 60 POC Glucose (mg/dL) Random Glucose 88 D Calcium 8.2 L Phosphorus Magnesium Iron 52 % Saturation 22 Ferritin 4.7 Total Bilirubin 0.1 L AST 21 ALT 9 D Alkaline Phosphatase 128 H Total Protein 7.0 Albumin 4.1 Globulin 2.9 Albumin/Globulin Ratio 1.4 25-OH Vitamin D Total Urine Color Urine Clarity Urine pH Ur Specific [place] Urine Protein Urine Glucose (UA) Urine Ketones Urine Blood Urine Nitrate Urine Bilirubin Urine Urobilinogen Ur Leukocyte Esterase Urine WBC (Auto) Urine RBC (Auto) Ur Squamous Epith Cells Urine Bacteria Urine HCG, Qual HIV 1&2 Antibody Screen Blood Type Antibody Screen 11/23/18 11/23/18 11/24/18 18:50 20:21 02:44 WBC RBC Hgb Hct MCV MCH MCHC RDW Plt Count MPV Neut % (Auto) Lymph % (Auto) [place] % (Auto) Eos % (Auto) Baso % (Auto) Neut # (Auto) Lymph # (Auto) [place] # (Auto) Eos # (Auto) Baso # (Auto) Retic Count PT INR APTT Sodium Potassium Chloride Carbon Dioxide Anion Gap BUN Creatinine Est GFR ( Amer) Est GFR (Non-Af Amer) POC Glucose (mg/dL) Random Glucose Calcium Phosphorus Magnesium Iron % Saturation Ferritin Total Bilirubin AST ALT Alkaline Phosphatase Total Protein Albumin Globulin Albumin/Globulin Ratio 25-OH Vitamin D Total Urine Color Urine Clarity Urine pH Ur Specific [place] Urine Protein Urine Glucose (UA) Urine Ketones Urine Blood Urine Nitrate Urine Bilirubin Urine Urobilinogen Ur Leukocyte Esterase Urine WBC (Auto) Urine RBC (Auto) Ur Squamous Epith Cells Urine Bacteria Urine HCG, Qual Negative HIV 1&2 Antibody Screen Negative Blood Type O POSITIVE Antibody Screen Negative 11/24/18 11/24/18 11/24/18 06:31 08:56 08:56 WBC 5.3 RBC 3.68 L Hgb 8.2 L Hct 26.7 L MCV 72.4 L MCH 22.2 L MCHC 30.6 L RDW 17.7 H Plt Count 372 MPV 7.9 Neut % (Auto) 41.2 L Lymph % (Auto) 46.6 H [place] % (Auto) 9.1 Eos % (Auto) 2.5 Baso % (Auto) 0.6 Neut # (Auto) 2.2 Lymph # (Auto) 2.5 [place] # (Auto) 0.5 Eos # (Auto) 0.1 Baso # (Auto) 0.0 Retic Count 1.1 PT INR APTT Sodium Potassium Chloride Carbon Dioxide Anion Gap BUN Creatinine Est GFR ( Amer) Est GFR (Non-Af Amer) POC Glucose (mg/dL) 89 Random Glucose Calcium Phosphorus Magnesium Iron % Saturation Ferritin Total Bilirubin AST ALT Alkaline Phosphatase Total Protein Albumin Globulin Albumin/Globulin Ratio 25-OH Vitamin D Total < 12.8 L Urine Color Urine Clarity Urine pH Ur Specific [place] Urine Protein Urine Glucose (UA) Urine Ketones Urine Blood Urine Nitrate Urine Bilirubin Urine Urobilinogen Ur Leukocyte Esterase Urine WBC (Auto) Urine RBC (Auto) Ur Squamous Epith Cells Urine Bacteria Urine HCG, Qual HIV 1&2 Antibody Screen Blood Type Antibody Screen 11/24/18 08:56 WBC RBC Hgb Hct MCV MCH MCHC RDW Plt Count MPV Neut % (Auto) Lymph % (Auto) [place] % (Auto) Eos % (Auto) Baso % (Auto) Neut # (Auto) Lymph # (Auto) [place] # (Auto) Eos # (Auto) Baso # (Auto) Retic Count PT INR APTT Sodium 139 Potassium 4.0 Chloride 107 Carbon Dioxide 26 Anion Gap 10 BUN 6 L Creatinine 0.6 L Est GFR ( Amer) > 60 Est GFR (Non-Af Amer) > 60 POC Glucose (mg/dL) Random Glucose 74 Calcium 8.0 L Phosphorus 3.6 Magnesium 2.0 Iron % Saturation Ferritin Total Bilirubin 0.5 AST 23 ALT 19 Alkaline Phosphatase 112 Total Protein 6.6 Albumin 3.8 Globulin 2.9 Albumin/Globulin Ratio 1.3 25-OH Vitamin D Total Urine Color Urine Clarity Urine pH Ur Specific [place] Urine Protein Urine Glucose (UA) Urine Ketones Urine Blood Urine Nitrate Urine Bilirubin Urine Urobilinogen Ur Leukocyte Esterase Urine WBC (Auto) Urine RBC (Auto) Ur Squamous Epith Cells Urine Bacteria Urine HCG, Qual HIV 1&2 Antibody Screen Blood Type Antibody Screen Assessment & Plan - Assessment and Plan (Free Text) Plan: MRI Lumbar spine: At L4-5, central annular tear and broad-based central and left posterolateral disc extrusion with approximately 10 mm cranial migration of extruded disc fragment, mass effect on the traversing left S1 and left-sided traversing nerve roots and mild spinal canal stenosis. Mild right and moderate left neural foraminal narrowing. At L5-S1 broad-based central disc protrusion and mild spinal canal stenosis. No neural foraminal narrowing. -Patient went for L4-5 Laminectomy today -Gabapentin 300mg PO TID for pain -No further work up from neurology stand point. Reconsult as necessary. Discussed with Dr. Cris Beasley, PGY-1 <Farhad Lynch - Last Filed: 11/26/18 16:04> Results - Vital Signs Recent Vital Signs: Last Vital Signs Temp 99.1 F 11/25/18 18:57 Pulse 98 H 11/25/18 19:12 Resp 18 11/25/18 18:57 BP 91/53 L 11/25/18 19:12 Pulse Ox 98 11/25/18 17:06 - Labs Result Diagrams: 11/25/18 11:37 11/24/18 08:56 Labs: Laboratory Results - last 24 hr 11/23/18 20:21 Blood Type O POSITIVE Antibody Screen Negative Attending/Attestation - Attestation I have personally seen and examined this patient.: Yes I have fully participated in the care of the patient.: Yes I have reviewed all pertinent clinical information: Yes Notes (Text): I agree with the assessment and plan: -Gabapentin 300mg PO TID for pain -No further work up from neurology stand point. Reconsult as necessary.
--- NOTE | 2018-11-24 11:52 | CP.PCM.CON ---
Review of Systems - Review of Systems All systems: reviewed and no additional remarkable complaints except (as per HPI) Past Patient History - Past Medical History & Family History Past Medical History?: Yes - Past Social History Smoking Status: Never Smoked - CARDIAC Hx Cardiac Disorders: No - PULMONARY Hx Respiratory Disorders: No - NEUROLOGICAL Hx Seizures: Yes - HEENT Hx HEENT Problems: No - RENAL Hx Chronic Kidney Disease: No - ENDOCRINE/METABOLIC Hx Endocrine Disorders: No - HEMATOLOGICAL/ONCOLOGICAL Hx Anemia: Yes - MUSCULOSKELETAL/RHEUMATOLOGICAL Hx Musculoskeletal Disorders: Yes Hx Herniated Disk: Yes - PSYCHIATRIC Hx Substance Use: No - SURGICAL HISTORY Hx Cholecystectomy: Yes - ANESTHESIA Hx Anesthesia: Yes Hx Anesthesia Reactions: No Meds Allergies/Adverse Reactions: Allergies Allergy/AdvReac Type Severity Reaction Status Date / Time No Known Allergies Allergy Verified 11/23/18 12:54 - Medications Medications: Current Medications Famotidine (Pepcid) 20 mg IVP DAILY [facility] Ferric Sodium Gluconate Complex (Ferrlecit) 125 mg IVPB DAILY [facility] Stop: 12/02/18 07:01 Last Admin: 11/24/18 09:33 Dose: Not Given Ceftriaxone Sodium 1 gm/ (Sodium Chloride) 100 mls @ 100 mls/hr IVPB Q12H [facility]; Protocol Last Admin: 11/24/18 05:03 Dose: 100 mls/hr Morphine Sulfate (Morphine) 4 mg IVP Q4 PRN PRN Reason: Pain, severe (8-10) Last Admin: 11/24/18 04:24 Dose: 4 mg Morphine Sulfate (Morphine) 1 mg IVP Q4H PRN PRN Reason: Pain, moderate (4-7) Saccharomyces Boulardii (Florastor) 250 mg PO BID [facility] Last Admin: 11/24/18 10:46 Dose: Not Given Physical Exam - Constitutional Appears: Non-toxic, Other (uncomfortable in pain) - Head Exam Head Exam: ATRAUMATIC, NORMOCEPHALIC - Eye Exam Eye Exam: EOMI, Normal appearance, PERRL - ENT Exam ENT Exam: Mucous Membranes Moist - Neck Exam Neck exam: Positive for: Full Rom, Normal Inspection - Respiratory Exam Respiratory Exam: Clear to Auscultation Bilateral. absent: Rales, Rhonchi, Wheezes - Cardiovascular Exam Cardiovascular Exam: REGULAR RHYTHM, +S1, +S2 - GI/Abdominal Exam GI & Abdominal Exam: Normal Bowel Sounds, Soft. absent: Firm, Guarding, Tenderness - Extremities Exam Extremities exam: Positive for: normal inspection. Negative for: tenderness Additional comments: ROM lower extremities intact, but painful - Back Exam Additional comments: exquisite tenderness to palpation of midline thoracic and lumbar spine. - Neurological Exam Neurological exam: Alert, CN II-XII Intact, Oriented x3 Additional comments: Muscle strength 5/5 all extremities, sensation intact, Patellar and achilles DTR 2+, babinski downgoing. Results - Vital Signs Recent Vital Signs: Last Vital Signs Temp 98.3 F 11/24/18 09:52 Pulse 78 11/24/18 09:52 Resp 18 11/24/18 09:52 BP 105/64 11/24/18 09:52 Pulse Ox 100 11/24/18 09:52 - Labs Result Diagrams: 11/24/18 08:56 11/24/18 08:56 Labs: Laboratory Results - last 24 hr 11/23/18 11/23/18 11/23/18 14:08 14:08 14:08 WBC 5.3 RBC 3.93 Hgb 8.6 L Hct 28.1 L MCV 71.6 L MCH 21.9 L MCHC 30.6 L RDW 17.5 H Plt Count 375 D MPV 7.8 Neut % (Auto) 56.7 Lymph % (Auto) 30.8 [place] % (Auto) 9.1 Eos % (Auto) 2.2 Baso % (Auto) 1.2 Neut # (Auto) 3.0 Lymph # (Auto) 1.6 [place] # (Auto) 0.5 Eos # (Auto) 0.1 Baso # (Auto) 0.1 Retic Count PT 12.0 INR 1.1 APTT 31 Sodium Potassium Chloride Carbon Dioxide Anion Gap BUN Creatinine Est GFR ( Amer) Est GFR (Non-Af Amer) POC Glucose (mg/dL) Random Glucose Calcium Phosphorus Magnesium Iron % Saturation Ferritin Total Bilirubin AST ALT Alkaline Phosphatase Total Protein Albumin Globulin Albumin/Globulin Ratio 25-OH Vitamin D Total Urine Color Mary Urine Clarity Hazy Urine pH 5.0 Ur Specific [place] 1.021 Urine Protein Negative Urine Glucose (UA) Normal Urine Ketones Negative Urine Blood Negative Urine Nitrate Negative Urine Bilirubin Negative Urine Urobilinogen 4.0 H Ur Leukocyte Esterase 2+ H Urine WBC (Auto) 12 H Urine RBC (Auto) 4 H Ur Squamous Epith Cells 15 H Urine Bacteria Many H Urine HCG, Qual HIV 1&2 Antibody Screen Blood Type Antibody Screen 11/23/18 11/23/18 11/23/18 14:08 18:03 18:50 WBC RBC Hgb Hct MCV MCH MCHC RDW Plt Count MPV Neut % (Auto) Lymph % (Auto) [place] % (Auto) Eos % (Auto) Baso % (Auto) Neut # (Auto) Lymph # (Auto) [place] # (Auto) Eos # (Auto) Baso # (Auto) Retic Count PT INR APTT Sodium 137 Potassium 3.6 Chloride 107 Carbon Dioxide 24 Anion Gap 10 BUN 13 Creatinine 0.7 Est GFR ( Amer) > 60 Est GFR (Non-Af Amer) > 60 POC Glucose (mg/dL) Random Glucose 88 D Calcium 8.2 L Phosphorus Magnesium Iron 52 % Saturation 22 Ferritin 4.7 Total Bilirubin 0.1 L AST 21 ALT 9 D Alkaline Phosphatase 128 H Total Protein 7.0 Albumin 4.1 Globulin 2.9 Albumin/Globulin Ratio 1.4 25-OH Vitamin D Total Urine Color Urine Clarity Urine pH Ur Specific [place] Urine Protein Urine Glucose (UA) Urine Ketones Urine Blood Urine Nitrate Urine Bilirubin Urine Urobilinogen Ur Leukocyte Esterase Urine WBC (Auto) Urine RBC (Auto) Ur Squamous Epith Cells Urine Bacteria Urine HCG, Qual HIV 1&2 Antibody Screen Blood Type Antibody Screen 11/23/18 11/23/18 11/24/18 18:50 20:21 02:44 WBC RBC Hgb Hct MCV MCH MCHC RDW Plt Count MPV Neut % (Auto) Lymph % (Auto) [place] % (Auto) Eos % (Auto) Baso % (Auto) Neut # (Auto) Lymph # (Auto) [place] # (Auto) Eos # (Auto) Baso # (Auto) Retic Count PT INR APTT Sodium Potassium Chloride Carbon Dioxide Anion Gap BUN Creatinine Est GFR ( Amer) Est GFR (Non-Af Amer) POC Glucose (mg/dL) Random Glucose Calcium Phosphorus Magnesium Iron % Saturation Ferritin Total Bilirubin AST ALT Alkaline Phosphatase Total Protein Albumin Globulin Albumin/Globulin Ratio 25-OH Vitamin D Total Urine Color Urine Clarity Urine pH Ur Specific [place] Urine Protein Urine Glucose (UA) Urine Ketones Urine Blood Urine Nitrate Urine Bilirubin Urine Urobilinogen Ur Leukocyte Esterase Urine WBC (Auto) Urine RBC (Auto) Ur Squamous Epith Cells Urine Bacteria Urine HCG, Qual Negative HIV 1&2 Antibody Screen Negative Blood Type O POSITIVE Antibody Screen Negative 11/24/18 11/24/18 11/24/18 06:31 08:56 08:56 WBC 5.3 RBC 3.68 L Hgb 8.2 L Hct 26.7 L MCV 72.4 L MCH 22.2 L MCHC 30.6 L RDW 17.7 H Plt Count 372 MPV 7.9 Neut % (Auto) 41.2 L Lymph % (Auto) 46.6 H [place] % (Auto) 9.1 Eos % (Auto) 2.5 Baso % (Auto) 0.6 Neut # (Auto) 2.2 Lymph # (Auto) 2.5 [place] # (Auto) 0.5 Eos # (Auto) 0.1 Baso # (Auto) 0.0 Retic Count 1.1 PT INR APTT Sodium Potassium Chloride Carbon Dioxide Anion Gap BUN Creatinine Est GFR ( Amer) Est GFR (Non-Af Amer) POC Glucose (mg/dL) 89 Random Glucose Calcium Phosphorus Magnesium Iron % Saturation Ferritin Total Bilirubin AST ALT Alkaline Phosphatase Total Protein Albumin Globulin Albumin/Globulin Ratio 25-OH Vitamin D Total < 12.8 L Urine Color Urine Clarity Urine pH Ur Specific [place] Urine Protein Urine Glucose (UA) Urine Ketones Urine Blood Urine Nitrate Urine Bilirubin Urine Urobilinogen Ur Leukocyte Esterase Urine WBC (Auto) Urine RBC (Auto) Ur Squamous Epith Cells Urine Bacteria Urine HCG, Qual HIV 1&2 Antibody Screen Blood Type Antibody Screen 11/24/18 08:56 WBC RBC Hgb Hct MCV MCH MCHC RDW Plt Count MPV Neut % (Auto) Lymph % (Auto) [place] % (Auto) Eos % (Auto) Baso % (Auto) Neut # (Auto) Lymph # (Auto) [place] # (Auto) Eos # (Auto) Baso # (Auto) Retic Count PT INR APTT Sodium 139 Potassium 4.0 Chloride 107 Carbon Dioxide 26 Anion Gap 10 BUN 6 L Creatinine 0.6 L Est GFR ( Amer) > 60 Est GFR (Non-Af Amer) > 60 POC Glucose (mg/dL) Random Glucose 74 Calcium 8.0 L Phosphorus 3.6 Magnesium 2.0 Iron % Saturation Ferritin Total Bilirubin 0.5 AST 23 ALT 19 Alkaline Phosphatase 112 Total Protein 6.6 Albumin 3.8 Globulin 2.9 Albumin/Globulin Ratio 1.3 25-OH Vitamin D Total Urine Color Urine Clarity Urine pH Ur Specific [place] Urine Protein Urine Glucose (UA) Urine Ketones Urine Blood Urine Nitrate Urine Bilirubin Urine Urobilinogen Ur Leukocyte Esterase Urine WBC (Auto) Urine RBC (Auto) Ur Squamous Epith Cells Urine Bacteria Urine HCG, Qual HIV 1&2 Antibody Screen Blood Type Antibody Screen
[2018-11-24] MEDS ORDERED: Lactated Ringer's 1,000 ML IV SCH (12:30)
--- NOTE | 2018-11-24 12:38 | CARD ---
APPROVED REPORT Date of service: 11/23/2018 EKG Measurement Heart [id number] <Conclusion> Normal sinus rhythm Possible Left atrial enlargement Borderline ECG
--- NOTE | 2018-11-24 14:43 | RAD ---
PROCEDURE: HISTORY: As above COMPARISON: None TECHNIQUE: Total fluoroscopic time utilized during the procedure: 4.8 seconds ; 0.69 mGy cm 2 FINDINGS: Submitted images from the current procedure: 3 Please refer to the physician's notes performing the procedure. IMPRESSION: Less than 1 hour fluoroscopic time utilized during performance of the procedure
[2018-11-24] MEDS: Oxycodone/Acetaminophen 5/325 mg Tab PO PRN (16:45)
[2018-11-24] MEDS: HYDROmorphone 0.5 mg/0.5 ml ISec IVP PRN (19:13)
[2018-11-24] MEDS: Potassium Ch 20mEq in D5-1/2NS 1,000 ML IV SCH ×2 (19:14→20:52)
[2018-11-25] MEDS: Potassium Ch 20mEq in D5-1/2NS 1,000 ML IV SCH ×2 (05:30→14:46)
--- NOTE | 2018-11-25 06:27 | OP ---
PROCEDURE DATE: 11/24/2018 PREOPERATIVE DIAGNOSIS: Herniated disk at L4-L5 with left L5 radiculopathy. POSTOPERATIVE DIAGNOSIS: Herniated disk at L4-L5 with left L5 radiculopathy. OPERATION: Hemilaminotomy with excision of herniated disk. SURGEON: Kofi Franco MD BROOM MACHINE OPERATOR: Braulio Manzano MD ANESTHESIA: General endotracheal tube intubation. DESCRIPTION OF PROCEDURE: The patient was brought to the operating room and general anesthesia was achieved. Intravenous antibiotics had been administered already on the floor. Spinal cord monitoring leads are placed throughout the patient's body. Real-time monitoring was done by vehicle glass technician in the room. Remote monitoring done by physician as well. Sequential compression boots are placed to each of the patient's legs. The patient was then gently transferred onto the operating table and placed prone on a Rashaad frame keeping her abdomen and breasts free from pressure anteriorly. Care was taken to protect the elbows and knees from pressure points. A sterile drape was used to seal off the patient's perineal region from the operative field and her back was sterilely prepped and draped. The patient has had previous surgery for the same problem four years ago. The level for this incision was noted under fluoroscopy and infiltrated with lidocaine with epinephrine. An incision was then made sharply in the midline, taken out subcutaneous tissue using sharp and blunt dissection. Hemostasis was achieved using electrocautery. The fascia was divided and stripped laterally to the left side out to the level of facet joint and the pars. Tissues are held back with a Jennifer retractor around the L4-L5 facet joint. Fluoroscopic view was taken, which confirmed we were at the L4-L5 level. The site of her previous surgery was noted, but it is just a small hemilaminotomy. This was widened and lengthened with a 3-mm [place]. Fair amount of scar tissue was noted. Hemostasis was achieved with bipolar cautery and thrombinated Gelfoam powder. The disk was then identified and needle placed in it and again the L4-L5 level was verified with fluoroscopic views. The needle was withdrawn. A fragment of disk was removed with pituitary rongeur. The annulus was incised and many more loose fragments were then removed. There were several that were cephalad to the disk space itself behind the body of L4. Once this was all cleared out, the disk space was irrigated with antibiotic solution and some more fragments were discovered, which were removed. At the completion, we could easily pass the Rory tool along the ventral surface of the thecal sac. There was no pressure on the traversing or exiting left L5 root either. The L4 foramen was patent as well. The disk space was irrigated once more and bacitracin powder was placed in the disk space. Hemostasis was achieved with thrombinated Gelfoam powder as well as some liquid thrombin and bipolar cautery. The wound was closed in layers with interrupted sutures of 0 Vicryl for the fascia. After further irrigation, the subcutaneous tissue was closed with interrupted sutures of 2-0 Vicryl and the skin was approximated with a running subcuticular suture of 3-0 V-Loc. Dermabond was applied to seal the closure. Once that was dry, the patient was gently transferred back onto her bed in supine position. She was awakened and extubated. She was taken to recovery room in stable condition. She tolerated the procedure well. Estimated blood loss was 50 mL. She received a liter of crystalloid. No permanent electrophysiologic abnormalities were noted at the completion of the case. Kofi Franco MD
--- NOTE | 2018-11-25 06:59 | CON ---
DATE: 11/24/2018 REASON FOR CONSULTATION: Herniated disc. HISTORY OF PRESENT ILLNESS: The patient is a [id number] woman who states that she had surgery for herniated disc at L4-5 back in 2014. She stated at that time she had pain going down the left leg. She did well for a while, but over the past 6 months, has had worsening pain little by little and the past month has just been getting intolerable. 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 She does not complain of bowel or bladder incontinence, but does state that she has trouble with getting to the bathroom, when she has a sense of urgency and has dribbled a little bit in the past couple of days as well which had never happened before. She states the pain is only down the left leg. It goes down from the back down the outside of the leg to the top of the foot. She came to the emergency room, was admitted because of her severe intractable pain. PAST MEDICAL HISTORY: Significant for anemia which she states she has had ever since her gastric bypass surgery in 2013 at [place]. She denies any other medical issues. MEDICATIONS: Her medications are as listed on the chart. ALLERGIES: SHE IS NOT ALLERGIC TO ANY MEDICINE SHE KNOWS OF. PAST SURGICAL HISTORY: In addition to the gastric bypass as well as the herniated disc surgery as well as significant for cholecystectomy 2012, tubal ligation 2009, and four C-sections prior to that. SOCIAL HISTORY: She states she does not smoke and only takes alcohol on rare occasions such as New Years. PHYSICAL EXAMINATION: BACK: On examination she has a well-healed midline incision above a tattoo in her lumbar region. She just seems to be in a fair amount of discomfort. She states she feels everything to light touch equally in the right and the left leg. She has weakness of her anterior tibialis and EHL on the left side compared to the right. Straight leg raising on the right side is allowed to about 34 degrees at which time she complains of pain radiating down her left leg. I can barely left the left leg up 10 degrees before she starts complaining of pain in that leg. Good distal pulses. No clonus or Babinski is present. Her MRI of lumbar spine was done on admission and it shows what appears to be an extremely large extruded herniated disc at L4-5. It is primarily on the left side. There is a smaller central left-sided herniated disc at L5-S1. The disc at L4-5 appears to be extending cranially behind the L4 body. She has disc desiccation primarily at the L4-5 level. A little bit at 5-1 compared to the disc above 4-5. There is some narrowing of the 4-5 disc as well. IMPRESSION AND PLAN: Recurrent herniated disc L4-5 with a left L5 radiculopathy. At this point generally been trying to push ahead with things for the past 6 months with pain that has been getting progressively worse to the point that now it is significantly affecting her activities of daily living. She wants to have something done to alleviate this pain. We discussed doing a re-exploration of the area and with an excision of the herniated disc. She agrees with this plan. It was explained that there may be some scarring present. There may be damage to the thecal sac and any reoperation and she understands that. I have explained about use of intravenous antibiotics preoperatively as well as spinal cord monitoring intraoperatively. Again, having had the surgery before, she is somewhat familiar with what is involved with it. Presuming everything procedures well, she can be mobilized later this evening and certainly tomorrow be seen by physical therapy and discharge once she is ambulatory. I have explained that as this is the second herniated disc at this level, she may need something else done down the line such as a fusion, but that will be evaluated as we followup. We also may need to do a complete laminectomy at this level to safely decompress everything, depending on the amount of scarring that is encountered intraoperatively as well. We will be taking her to the operating room this morning. Consent has been obtained. Thank you for allowing us to participate in the care of your patient. Kofi Fracno MD RIO
[2018-11-25] MEDS: HYDROmorphone 0.5 mg/0.5 ml ISec IVP PRN (08:26)
[2018-11-25 08:36] VITALS: O2SAT 98
--- NOTE | 2018-11-25 10:34 | CP.PCM.DIS ---
Provider - Provider Date of Admission: 11/23/18 17:42 Attending physician: Madeline Torres MD Consults: 11/23/18 17:45 Physician Consult Routine Comment: Consulting Provider: Braulio Manzano Consulting Physician: Braulio Manzano Reason for Consult: l4-5 herination, Additional Comments: Ed spoke with him, for OR tomorrow 11/23/18 18:31 Neurology Consult Routine Comment: neurosurg in AM Consulting Provider: Gume Sierra Consulting Physician: Gume Sierra Reason for Consult: l4-l5 herniation Time Spent in preparation of Discharge (in minutes): 45 Diagnosis - Discharge Diagnosis (1) Lumbar disc disease Status: Chronic (2) UTI (urinary tract infection) Status: Acute (3) Anemia Status: Acute Hospital Course - Lab Results Lab Results: Micro Results 11/23/18 14:08 Urine,Clean Catch Urine Culture - Final Escherichia Coli Most Recent Lab Values WBC 5.3 K/uL (4.8-10.8) 11/24/18 08:56 RBC 3.68 Mil/uL (3.80-5.20) L 11/24/18 08:56 Hgb 8.2 g/dL (11.0-16.0) L 11/24/18 08:56 Hct 26.7 % (34.0-47.0) L 11/24/18 08:56 MCV 72.4 fL (81.0-99.0) L 11/24/18 08:56 MCH 22.2 pg (27.0-31.0) L 11/24/18 08:56 MCHC 30.6 g/dL (33.0-37.0) L 11/24/18 08:56 RDW 17.7 % (11.5-14.5) H 11/24/18 08:56 Plt Count 372 K/uL (130-400) 11/24/18 08:56 MPV 7.9 fL (7.2-11.7) 11/24/18 08:56 Neut % (Auto) 41.2 % (50.0-75.0) L 11/24/18 08:56 Lymph % (Auto) 46.6 % (20.0-40.0) H 11/24/18 08:56 [place] % (Auto) 9.1 % (0.0-10.0) 11/24/18 08:56 Eos % (Auto) 2.5 % (0.0-4.0) 11/24/18 08:56 Baso % (Auto) 0.6 % (0.0-2.0) 11/24/18 08:56 Neut # (Auto) 2.2 K/uL (1.8-7.0) 11/24/18 08:56 Lymph # (Auto) 2.5 K/uL (1.0-4.3) 11/24/18 08:56 [place] # (Auto) 0.5 K/uL (0.0-0.8) 11/24/18 08:56 Eos # (Auto) 0.1 K/uL (0.0-0.7) 11/24/18 08:56 Baso # (Auto) 0.0 K/uL (0.0-0.2) 11/24/18 08:56 Retic Count 1.1 % (0.5-1.5) 11/24/18 08:56 PT 12.0 SECONDS (9.7-12.2) 11/23/18 14:08 INR 1.1 11/23/18 14:08 APTT 31 SECONDS (21-34) 11/23/18 14:08 Sodium 139 mmol/L (132-148) 11/24/18 08:56 Potassium 4.0 mmol/L (3.6-5.2) 11/24/18 08:56 Chloride 107 mmol/L (98-107) 11/24/18 08:56 Carbon Dioxide 26 mmol/L (22-30) 11/24/18 08:56 Anion Gap 10 (10-20) 11/24/18 08:56 BUN 6 mg/dL (7-17) L 11/24/18 08:56 Creatinine 0.6 mg/dL (0.7-1.2) L 11/24/18 08:56 Est GFR ( Amer) > 60 11/24/18 08:56 Est GFR (Non-Af Amer) > 60 11/24/18 08:56 POC Glucose (mg/dL) 115 mg/dL (65-110) H 11/25/18 06:26 Random Glucose 74 mg/dL (65-105) 11/24/18 08:56 Calcium 8.0 mg/dl (8.6-10.4) L 11/24/18 08:56 Phosphorus 3.6 mg/dL (2.5-4.5) 11/24/18 08:56 Magnesium 2.0 mg/dL (1.6-2.3) 11/24/18 08:56 Iron 52 ug/dL (37-170) 11/23/18 18:50 % Saturation 22 (20-55) 11/23/18 18:50 Ferritin 4.7 ng/mL 11/23/18 18:03 Total Bilirubin 0.5 mg/dL (0.2-1.3) 11/24/18 08:56 AST 23 U/L (14-36) 11/24/18 08:56 ALT 19 U/L (9-52) 11/24/18 08:56 Alkaline Phosphatase 112 U/L (38-126) 11/24/18 08:56 Total Protein 6.6 g/dL (6.3-8.3) 11/24/18 08:56 Albumin 3.8 g/dL (3.5-5.0) 11/24/18 08:56 Globulin 2.9 gm/dL (2.2-3.9) 11/24/18 08:56 Albumin/Globulin Ratio 1.3 (1.0-2.1) 11/24/18 08:56 25-OH Vitamin D Total < 12.8 NG/ML (30.0-100.0) L 11/24/18 08:56 Urine Color Mary (YELLOW) 11/23/18 14:08 Urine Clarity Hazy (Clear) 11/23/18 14:08 Urine pH 5.0 (5.0-8.0) 11/23/18 14:08 Ur Specific [place] 1.021 (1.003-1.030) 11/23/18 14:08 Urine Protein Negative mg/dL (NEGATIVE) 11/23/18 14:08 Urine Glucose (UA) Normal mg/dL (Normal) 11/23/18 14:08 Urine Ketones Negative mg/dL (NEGATIVE) 11/23/18 14:08 Urine Blood Negative (NEGATIVE) 11/23/18 14:08 Urine Nitrate Negative (NEGATIVE) 11/23/18 14:08 Urine Bilirubin Negative (NEGATIVE) 11/23/18 14:08 Urine Urobilinogen 4.0 mg/dL (0.2-1.0) H 11/23/18 14:08 Ur Leukocyte Esterase 2+ Rebecca/uL (Negative) H 11/23/18 14:08 Urine WBC (Auto) 12 /hpf (0-5) H 11/23/18 14:08 Urine RBC (Auto) 4 /hpf (0-3) H 11/23/18 14:08 Ur Squamous Epith Cells 15 /hpf (0-5) H 11/23/18 14:08 Urine Bacteria Many (<OCC) H 11/23/18 14:08 Urine HCG, Qual Negative (NEGATIVE) 11/24/18 02:44 HIV 1&2 Antibody Screen Negative (NEGATIVE) 11/23/18 18:50 Blood Type O POSITIVE 11/23/18 20:21 Antibody Screen Negative 11/23/18 20:21 - Hospital Course Hospital Course: CC: low back pain HPI: Patient is a 38 year old female with PMHx of anemia, gastric bypass surgery (2013), L4-L5 laminectomy due to herniated discs (2014) who presents today for 1 month of worsening low back pain. Patient had no trauma or falls. 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 Patient says the pain today was a knife like pain in her low back which she rated 15/10 so she came to the hospital. Additionally patient has had 3-4 episodes of a small amount of urinary incontinence in the past 2 days. Patient denies dysuria, urinary frequency, or hematuria. Patient is able to walk, but says the back pain radiates down the left. Patient denies any numbness or tingling in the lower extremities. Patient denies any saddle anesthesia or fecal incontinence. Patient had a normal bowel movement yesterday. Patient does not take any medication for the pain. Patient said she took Tylenol PM a few weeks ago, but did not like the way it made her feel. Patient has no headache, chest pain, shortness of breath, abdominal pain, nausea, vomiting, constipation, or diarrhea. All: NKDA PMHx: anemia 2/2 gastric bypass surgery, herniated discs Psurg: Gastric bypass 2013 at [facility] (has not had any follow up, takes no supplements/vitamins), L4/L5 Laminectomy 2014 2/2 herniated discs at [facility] with Dr. Lal, Cholecystectomy 2012, Tubal ligation 2009, 4 csections: 1993, 2000, 2001, 2007 Famhx: denies Meds: denies Social: denies tobacco, drugs, admits to drinking about 1 drink per year for [employer] [place] Pt was admitted for neurosurgical intervention by Dr Franco, pt had a L4,L5 discectomy , pt pain was controlled with dilaudid, morphine, and percocet alternating doses until surgery. Pt improved after her discectomy and improved significantly. Pt was found to have a UTI and given ceftriaxone, Pt was dc home on pain control and antibiotics and instructed to follow up outpt with Dr Franco Discharge Exam - Head Exam Head Exam: ATRAUMATIC, NORMAL INSPECTION, NORMOCEPHALIC - Additional Findings Additional findings: Constitutional Appears: Non-toxic, In Acute Distress - Head Exam Head Exam: ATRAUMATIC, NORMAL INSPECTION, NORMOCEPHALIC - Eye Exam Eye Exam: EOMI, Normal appearance - ENT Exam ENT Exam: Mucous Membranes Moist - Respiratory Exam Respiratory Exam: Clear to Auscultation Bilateral, NORMAL BREATHING PATTERN - Cardiovascular Exam Cardiovascular Exam: REGULAR RHYTHM, RRR, +S1, +S2 - GI/Abdominal Exam GI & Abdominal Exam: Normal Bowel Sounds, Soft. absent: Tenderness - Extremities Exam Extremities exam: Positive for: normal inspection. Negative for: pedal edema, tenderness Additional comments: walking, ambulating well - Neurological Exam Neurological exam: Alert, CN II-XII Intact, Oriented x3 Additional comments: r leg reflexes 3+, l leg reflexes 2+ normal sensation b/l LE no saddle anesthesia - Psychiatric Exam Psychiatric exam: Normal Affect, Normal Mood - Skin Skin Exam: Intact, Normal Color, Warm Discharge Plan - Discharge Medications Prescriptions: Famotidine [Pepcid] 40 mg PO DAILY #14 tablet Gabapentin [Neurontin] 300 mg PO TID #21 cap Meloxicam [Mobic] 15 mg PO DAILY #14 tab oxyCODONE/Acetaminophen [Percocet 5/325 mg Tab] 1 tab PO Q8 #15 tab Sulfamethoxazole/Trimethoprim [Bactrim DS 800 mg-160 mg] 1 tab PO BID #10 tab - Follow Up Plan Condition: STABLE Disposition: HOME/ ROUTINE Instructions: Herniated Disc (DC), Sulfamethoxazole and Trimethoprim, Famotidine, Gabapentin, Meloxicam, Oxycodone and Acetaminophen, Urinary Tract Infection in Women (DC) Additional Instructions: Please take the following medications as prescribed Famotidine [Pepcid] 40 mg PO DAILY #14 tablet Gabapentin [Neurontin] 300 mg PO TID #21 cap Meloxicam [Mobic] 15 mg PO DAILY #14 tab oxyCODONE/Acetaminophen [Percocet 5/325 mg Tab] 1 tab PO Q8 #15 tab Sulfamethoxazole/Trimethoprim [Bactrim DS 800 mg-160 mg] 1 tab PO BID #10 tab Please follow up with your neurosurgeon Dr Franco within 2 weeks of discharge Please [facility] Sierra within 7 days of discharge Please follow up with your PMD within 7 days of discharge if symptoms return, please seek medical attention immediately take care and be well Jorge Cheung DO Referrals: Braulio Manzano MD [Staff Provider] - Gume Sierra MD [Staff Provider] -
[2018-11-25] MEDS: Ferric Sodium Gluconat Complex 62.5 mg/5 ml Vial IVPB SCH (10:51)
[2018-11-25] MEDS: Saccharomyces Boulardi 250 mg Cap PO SCH ×2 (10:51→17:06)
[2018-11-25 11:55] LABS: HEMOGLOBIN 7.4 g/dL (11.0-16.0); MEAN CELL VOLUME 72.2 fL (81.0-99.0); MEAN CORPUSCULAR HGB CONC 30.4 g/dL (33.0-37.0); MEAN PLATELET VOLUME 8.1 fL (7.2-11.7); RBC 3.35 Mil/uL (3.80-5.20); RED CELL DISTRIBUTION WIDTH 17.2 % (11.5-14.5); WHITE BLOOD COUNT 5.8 K/uL (4.8-10.8)
[2018-11-25] MEDS: Oxycodone/Acetaminophen 5/325 mg Tab PO PRN ×2 (15:51→19:21)
[2018-11-25 17:20] VITALS: RESP 18
[2018-11-25 18:58] VITALS: TEMP 99.1
[2018-11-25 19:12] VITALS: BP 91/53; PULSE 98
== END 2018-11-25 19:40 | disposition home or self-care (01) | DRG 519 ==
LOC: C.ER 12:22 → C.9E 17:42 → C.5S 18:29
PROVIDERS: ADMIT Internal Medicine; ATTEND Internal Medicine
PROC: 0ST20ZZ Resection of Lumbar Vertebral Disc, Open Approach (ICD-10-PCS; principal; 2018-11-24 11:00)
DX: M51.17 Intervertebral disc disorders with radiculopathy, lumbosacral region (principal); N39.0 Urinary tract infection, site not specified; R32 Unspecified urinary incontinence; D63.8 Anemia in other chronic diseases classified elsewhere

== ENCOUNTER 2018-12-08 09:38 | Emergency (ER) | payer MEDICARE ==
[2018-12-08 09:45] VITALS: BP 113/80; PULSE 70; RESP 20; TEMP 97.6; O2SAT 100
[2018-12-08 09:52] VITALS: BMI 18.5
--- NOTE | 2018-12-08 10:57 | C.PDOC ---
History Of Present Illness 38 year old female presents to ED with complaint of lower back pain that radiates into her left leg for the past 9 days. Patient describes the pain as a burning electric sensation. She states that she had an laminectomy on 11/25/18 in [facility]. She states that the pain began 2 days after her surgery. Patient has an appointment with her surgeon () on 12/11/18. Patient denies bladder incontinence, bowel incontinence, numbness, and weakness. Time Seen by Provider: 12/08/18 10:11 Chief Complaint (Nursing): Back Pain History Per: Patient History/Exam Limitations: no limitations Onset/Duration Of Symptoms: Days (9) Current Symptoms Are (Timing): Still Present Quality Of Discomfort: Burning, "Pain", Other (Electric) Previous Symptoms: None Associated Symptoms: denies: Incontinence, New Weakness, New Numbness Exacerbating Factor(s): Nothing Past Medical History Reviewed: Historical Data, Nursing Documentation, Vital Signs Vital Signs: Last Vital Signs Temp 97.6 F 12/08/18 09:44 Pulse 70 12/08/18 09:44 Resp 20 12/08/18 09:44 BP 113/80 12/08/18 09:44 Pulse Ox 100 12/08/18 09:44 - Medical History PMH: Anemia, Back Problems, Seizures Denies: Chronic Kidney Disease Surgical History: Back Surgery (Herniated disc sx, laminectomy L4-5, "discectomy"), Cholecystectomy - [facility] Procedures RESECTION OF LUMBAR VERTEBRAL DISC, OPEN APPROACH (11/23/18) Family History: States: Unknown Family Hx - Social History Hx Tobacco Use: No Hx Alcohol Use: Yes (Rarely) Hx Substance Use: No - Immunization History Hx Tetanus Toxoid Vaccination: No Hx Influenza Vaccination: Yes (2015) Hx Pneumococcal Vaccination: No Review Of Systems Constitutional: Negative for: Fever, Chills, Weakness Genitourinary: Negative for: Incontinence Musculoskeletal: Positive for: Back Pain (lower back pain), Leg Pain (left leg) Neurological: Negative for: Weakness, Numbness, Dizziness Physical Exam - Physical Exam Appears: Well, Non-toxic, No Acute Distress Skin: Normal Color, Warm, Dry, Other (loose skin due to previously done gastric bypass) Head: Atraumatic, Normacephalic Eye(s): bilateral: PERRL, EOMI Neck: Normal ROM, Supple Chest: Symmetrical, No Deformity, No Tenderness Cardiovascular: Rhythm Regular, No Murmur Respiratory: No Accessory Muscle Use, No Rales, No Rhonchi, No Wheezing Gastrointestinal/Abdominal: Bowel Sounds, Soft, No Tenderness, No Distention Back: Other (3 inch well- healed scar, crusty at the edges; tenderness to the distal area of the scar in the sacral area) Extremity: Tenderness (left leg tender to palpation ), No Calf Tenderness, No Swelling Pulses: Left Dorsalis Pedis: Normal, Right Dorsalis Pedis: Normal Neurological/Psych: Oriented x3, Normal Speech, Normal Cognition, Normal Motor, Normal Sensation ED Course And Treatment O2 Sat by Pulse Oximetry: 100 (in RA) Medical Decision Making Medical Decision Making: Impression: 38 year old female presents to ED with complaint of lower back pain that radiates into her left leg for the past 9 days. Plan: POC U-preg and UA ordered for patient. 1047: Left message for (surgeon) 1106: called back. Discussed case with Dr. Franco. Recommends Toradol and Medrol dose pack. Will see patient for scheduled appointment 12/10/18. pt advised of plan.await upreg result to order medicaitons. Patient eloped. 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 (Isidra Resendez) - Scribe Statement The provider has reviewed the documentation as recorded by the Scribe (Isidra Resendez) All medical record entries made by the Scribe were at my direction and personally dictated by me. I have reviewed the chart and agree that the record accurately reflects my personal performance of the history, physical exam, medical decision making, and the department course for this patient. I have also personally directed, reviewed, and agree with the discharge instructions and disposition.
[2018-12-08 12:18] LABS: SQUAMOUS EPITHIAL 6 /hpf (0-5); URINE BILIRUBIN NEGATIVE (NEGATIVE); URINE BLOOD NEGATIVE (NEGATIVE); URINE CLARITY Hazy (Clear); URINE COLOR Yellow (YELLOW); URINE GLUCOSE (UA) NORMAL (Normal); URINE LEUKOCYTE ESTERASE NEG Leu/uL (Negative); URINE PROTEIN NEGATIVE (NEGATIVE); URINE UROBILINOGEN NORMAL mg/dL (0.2-1.0)
== END 2018-12-08 11:06 | disposition left against medical advice (07) ==
LOC: C.ER 09:38
DX: M54.5 Low back pain (principal)

== ENCOUNTER 2018-12-24 12:01 | Emergency (ER) | payer SELFPAY ==
[2018-12-24 12:02] VITALS: BMI 18.5
[2018-12-24 12:16] VITALS: BP 110/74; RESP 18
--- NOTE | 2018-12-24 12:51 | C.PDOC ---
History Of Present Illness 38 y/o female, with PSHx of back surgery, comes in to ED complaining of back pain and itchiness that radiates to her left buttocks. Patient rates pain 8/10 Denies any urinary symptoms, numbness, weakness, saddle anesthesia, nausea, vomiting, or other complaints. Patient states she hasnt taken any medications for the pain. Time Seen by Provider: 12/24/18 12:25 Chief Complaint (Nursing): Abnormal Skin Integrity History Per: Patient History/Exam Limitations: no limitations Onset/Duration Of Symptoms: Days Current Symptoms Are (Timing): Still Present Past Medical History Reviewed: Historical Data, Nursing Documentation, Vital Signs Vital Signs: Last Vital Signs Temp 98.2 F 12/24/18 12:06 Pulse 110 H 12/24/18 12:06 Resp 18 12/24/18 12:06 BP 110/74 12/24/18 12:06 Pulse Ox 100 12/24/18 12:06 - Medical History PMH: Anemia, Back Problems, Seizures (5 yrs ago) Denies: Chronic Kidney Disease Surgical History: Back Surgery (Herniated disc sx, laminectomy L4-5, "discectomy"), Cholecystectomy - [facility] RESECTION OF LUMBAR VERTEBRAL DISC, OPEN APPROACH (11/23/18) Family History: States: No Known Family Hx - Social History Hx Tobacco Use: No Hx Alcohol Use: Yes (Rarely) Hx Substance Use: No - Immunization History Hx Tetanus Toxoid Vaccination: No Hx Influenza Vaccination: Yes (2014) Hx Pneumococcal Vaccination: No Review Of Systems Except As Marked, All Systems Reviewed And Found Negative. Constitutional: Negative for: Fever, Chills Gastrointestinal: Negative for: Nausea, Vomiting, Abdominal Pain Genitourinary: Negative for: Dysuria, Hematuria Musculoskeletal: Positive for: Back Pain. Negative for: Leg Pain Skin: Positive for: Rash Physical Exam - Physical Exam Appears: Non-toxic, No Acute Distress Skin: Warm, Dry, No Rash Head: Atraumatic, Normacephalic Eye(s): bilateral: Normal Inspection Oral Mucosa: Moist Neck: Supple Cardiovascular: Rhythm Regular, No Friction Rub, No Murmur Respiratory: Normal Breath Sounds, No Rales, No Rhonchi, No Wheezing Gastrointestinal/Abdominal: Soft, No Tenderness Back: No CVA Tenderness, No Vertebral Tenderness, No Paraspinal Tenderness, Other (6cm spinal scar with keratinization with mild scattered macular rash around and slight urticaria, no tenderness, no drainage, no erythema, no fluctuance or induration) Extremity: Normal ROM, No Tenderness, No Swelling Extremity: Bilateral: Atraumatic, Normal Color And Temperature, Normal ROM Neurological/Psych: Oriented x3, Normal Speech, Normal Motor, Normal Sensation Gait: Steady ED Course And Treatment O2 Sat by Pulse Oximetry: 100 (RA) Pulse Ox Interpretation: Normal Disposition - Disposition Referrals: Kofi Franco MD [Staff Provider] - Disposition: HOME/ ROUTINE Disposition Time: 13:34 Condition: GOOD Additional Instructions: Follow up with Dr. Franco (spine surgureon) as scheduled in the next 2 weeks. Return if worsened. 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 - Scribe Statement The provider has reviewed the documentation as recorded by the Scribe Karyna Howe All medical record entries made by the Prashanthiblaquita were at my direction and personally dictated by me. I have reviewed the chart and agree that the record accurately reflects my personal performance of the history, physical exam, medical decision making, and the department course for this patient. I have also personally directed, reviewed, and agree with the discharge instructions and disposition.
[2018-12-24 14:19] VITALS: PULSE 69; TEMP 98
[2018-12-24 18:07] VITALS: O2SAT 100
== END 2018-12-24 14:18 | disposition home or self-care (01) ==
LOC: C.ER 12:01
DX: Z48.00 Encounter for change or removal of nonsurgical wound dressing (principal); L30.9 Dermatitis, unspecified; L98.8 Other specified disorders of the skin and subcutaneous tissue